=== PATIENT | female | born 1990 | race African-American/Black ===

== ENCOUNTER 2021-12-18 16:36 | Emergency (ER) | payer BC ==
[~2021-12-18] VITALS: Ht 157.5 cm; Wt 75.0 kg
[2021-12-18 17:17] VITALS: TEMP 98.6
[2021-12-18 19:22] VITALS: BP 128/78; PULSE 76
== END 2021-12-18 19:22 | disposition home or self-care (01) ==
LOC: COL.ER 16:36
DX: H00.021 Hordeolum internum right upper eyelid (principal); Z28.310 Unvaccinated for COVID-19